=== PATIENT | female | born 2000 | race African-American/Black ===

== ENCOUNTER 2020-08-13 18:14 | Emergency (ER) | payer OTHER | END 2020-08-13 20:46 | disposition home or self-care (01) | LOC: ERS 18:14 | DX: L70.0 Acne vulgaris (principal); F41.9 Anxiety disorder, unspecified | CPT/HCPCS: 99282 ==

== ENCOUNTER 2020-09-14 09:05 | Emergency (ER) | payer OTHER ==
[2020-09-14 17:50] LABS: SARS-CoV-2 MS2 Positive; SARS-CoV-2 N Gene Negative; SARS-CoV-2 S Gene Negative; SARS-CoV-2 by NAA Not Detected (NotDetected); SARS-CoV-2 orf1ab Negative
== END 2020-09-14 10:57 | disposition home or self-care (01) ==
LOC: ERS 09:05
DX: J02.8 Acute pharyngitis due to other specified organisms (principal); Z20.828 Contact with and (suspected) exposure to other viral communicable diseases; F41.9 Anxiety disorder, unspecified
CPT/HCPCS: 87081; 87430; 87635; 99283; U0003